=== PATIENT | male | born 1995 | race Caucasian/White ===

== ENCOUNTER 2017-07-24 16:52 | Emergency (ER) | payer MEDICAID ==
[~2017-07-24] VITALS: Ht 177.8 cm; Wt 102.0 kg
[~2017-07-24 16:52] MED LIST: DICY1TAB26 PO; LOMO PO; ZOFR4TAB3 SL
[2017-07-24 16:57] VITALS: BP 138/82; PULSE 70; RESP 16; TEMP 97.9; O2SAT 99
[2017-07-24] MEDS ORDERED: TETANUS/DIPHTHERIA TOXOID ADULT 0.5 ML VIAL IM ONE (17:30)
[2017-07-24] MEDS ORDERED: KETOROLAC TROMETHAMINE 60 MG/2 ML (IM) VIAL IM ONE (17:30)
[2017-07-24] MEDS ORDERED: LIDOCAINE HCL 1% 50 ML VIAL INFIL ONE (17:45)
[2017-07-24] MEDS ORDERED: CEPH-460 PO (18:32)
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
== END 2017-07-24 18:38 | disposition home or self-care (01) ==
LOC: PHEFT 16:52
DX: S01.81XA Laceration without foreign body of other part of head, initial encounter (principal); W20.8XXA Other cause of strike by thrown, projected or falling object, initial encounter; Y92.008 Other place in unspecified non-institutional (private) residence as the place of occurrence of the external cause; Z23 Encounter for immunization
CPT/HCPCS: 12011; 90471; 90714; 96372; 99283; J1885